=== PATIENT | female | born 1985 | race Caucasian/White ===

== ENCOUNTER 2020-02-26 11:33 | Emergency (ER) | payer MEDICAID ==
[~2020-02-26] VITALS: Ht 157.5 cm; Wt 90.9 kg
[~2020-02-26 11:33] MED LIST: TRIA15CR61 TOP
[2020-02-26 11:46] VITALS: BP 111/75
== END 2020-02-26 12:49 | disposition home or self-care (01) ==
LOC: ER 11:34
DX: F07.81 Postconcussional syndrome (principal)
CPT/HCPCS: 99282

== ENCOUNTER 2021-02-27 10:54 | Day surgery (SDC) | payer MEDICAID ==
[2021-02-24 11:22] LABS: BASOPHILS % (AUTO) 0.6 % (0-1); EOSINOPHILS # (AUTO) 0.1 X10'3 (0-0.9); LYMPHOCYTES # (AUTO) 1.4 X10'3 (1.1-4.8); LYMPHOCYTES % (AUTO) 25.5 % (21-51); MEAN CORPUSCULAR HEMOGLOBIN 30.1 PG (27.0-31.0); MEAN CORPUSCULAR VOLUME 88.3 FL (78-98); MEAN PLATELET VOLUME 7.8 FL (7.4-10.4); MONOCYTES # (AUTO) 0.4 X10'3 (0-0.9); NEUTROPHILS # (AUTO) 3.7 X10'3 (1.8-7.7); NEUTROPHILS % (AUTO) 64.9 % (42-75); PRE OP HEMATOCRIT 41.2 % (35.0-45.0); PRE OP PLATELET COUNT 285 X10'3 (140-440); RED BLOOD COUNT 4.67 X10'6 (4.20-5.60); RED CELL DISTRIBUTION WIDTH 14.1 % (11.5-14.5)
[2021-02-24 11:37] LABS: ALBUMIN 3.7 G/DL (3.4-5.0); ANION GAP 6 (8-16); BLOOD UREA NITROGEN 10 MG/DL (7-18); BUN/CREATININE RATIO 13.5 (6.6-38.0); CALCIUM 8.8 MG/DL (8.5-10.1); CHLORIDE 106 MMOL/L (99-107); CREATININE 0.74 MG/DL (0.40-0.90); GLUCOSE 83 MG/DL (70-104); POTASSIUM 3.7 MMOL/L (3.5-5.1); SODIUM 141 MMOL/L (135-145); TOTAL CARBON DIOXIDE 29.4 MMOL/L (24-32); eGFR 90 ML/MIN
[2021-02-24 11:39] LABS: HCG SERUM QL NEGATIVE
[2021-02-27] VITALS (9 sets, daily range): BP systolic 107–131; BP diastolic 62–75
[~2021-02-27] VITALS: Ht 154.9 cm; Wt 61.7 kg
[~2021-02-27 10:54] MED LIST changes: +NO HOME MEDS; -TRIA15CR61 TOP; +famotidine 20mg tablet PO ONE; +ringers solution, lacted 1,000 ML IV SCH
[2021-02-27] MEDS ORDERED: clindamycin-Cleocin 900mg/D5W 50 ML IV ONE (11:39)
[2021-02-27] MEDS ORDERED: vancomycin/NS 1 GM ADD-VANTAGE 250 ML X 1 DOSE IV ONE (11:45)
[2021-02-27] MEDS ORDERED: BUPIVAcaine/PF 2.5 mg/ml (0.25%) 30ml vial ONE (12:23)
[2021-02-27] MEDS ORDERED: triamcinolone acetonide 40mg/ml inj ONE (12:24)
[2021-02-27] MEDS ORDERED: sevoflurane 250ml liquid IH ONE (13:02)
[2021-02-27] MEDS ORDERED: midazolam 1 mg/ML 2ml injection ONE (13:06)
[2021-02-27] MEDS ORDERED: fentaNYL/PF 50MCG/1 ML 2ML syringe ONE (13:06)
[2021-02-27] MEDS ORDERED: propofol inj 20 ML IV ONE ×2 (13:17→13:44)
[2021-02-27] MEDS ORDERED: LIDOcaine 2% (20mg/ml) 5ml vial ONE (13:18)
[2021-02-27] MEDS ORDERED: meperidine/PF 25mg/ml syringe ONE (13:19)
[2021-02-27] MEDS ORDERED: ondansetron/PF 4mg/2ml inj ONE (13:29)
[2021-02-27] MEDS ORDERED: acetaminophen 1,000mg/100ml IV 100 ML IV ONE (13:30)
--- NOTE | 2021-02-27 13:58 | NUR ---
Received from OR via [facility] , accompanied by Anesthesiologist SAPPHIRE and report given by Anesthesiolgist. PATIENT WITH 20G PIV IN LEFT UE RUNNING LR AT 100. DENIES PAIN AT THIS TIME. 10L MASK ON WITH 98% SATURATIONS. RIGHT KNEE WITH BIAS WRAP THAT IS CDI. + DP TO RIGHT FOOT. Addendum: 02/27/21 at 1404 by Nino Cerda RN, RN Amended: Links added.
[2021-02-27] MEDS ORDERED: meperidine/PF 25mg/ml syringe IV PRN (14:10)
[2021-02-27] MEDS ORDERED: morphine 2 MG/ML inj. syringe IV PRN (14:10)
[2021-02-27] MEDS ORDERED: morphine 4 MG/ML inj SYRINge IV PRN (14:10)
[2021-02-27] MEDS: meperidine/PF 25mg/ml syringe IV PRN ×2 (14:17→14:37)
--- NOTE | 2021-02-27 15:08 | NUR ---
ALL DISCHARGE CRITERIA HAS BEEN MET. VSS, PAIN AT A TOLERABLE LEVEL, VOIDING AND ABLE TO SAFELY AMBULATE AND TRANSFER SELF. IV TAKEN OUT WITHOUT ANY COMPLICATIONS. ALL DISCHARGE INSTRUCTIONS COVERED WITH PATIENT AND ALL QUESTIONS ANSWERED. PATIENT TAKEN OUT VIA WHEELCHAIR TO PERSONAL VEHICLE WHERE FAMILY/FRIEND DROVE PATIENT HOME. SPOUSE PRESENT TO DRESS PATIENT AND HEAR DC INSTRUCTIONS WELL. VSS, PAIN CONTROLLED Addendum: 02/27/21 at 1526 by Nino Cerda RN, RN Amended: Links added.
== END 2021-02-27 15:08 | disposition home or self-care (01) ==
LOC: PAS 10:54
PROVIDERS: ATTEND Orthopaedic Surgery
DX: S83.231A Complex tear of medial meniscus, current injury, right knee, initial encounter (principal); S83.281A Other tear of lateral meniscus, current injury, right knee, initial encounter; M94.261 Chondromalacia, right knee; M17.0 Bilateral primary osteoarthritis of knee; F31.9 Bipolar disorder, unspecified; E66.8 Other obesity; Z68.26 Body mass index [BMI] 26.0-26.9, adult; Z20.822 Contact with and (suspected) exposure to COVID-19; Z79.899 Other long term (current) drug therapy; Z88.1 Allergy status to other antibiotic agents; Z90.49 Acquired absence of other specified parts of digestive tract; Z98.890 Other specified postprocedural states; Z98.84 Bariatric surgery status; Z87.891 Personal history of nicotine dependence
CPT/HCPCS: 29873; 29879; 29880; 36415; 80048; 82948; 84703; 85025; 87635; C9803; J0131; J2175; J2250; J2405; J2704; J3010; J3301; J3370; J3490; J7120; Z7506; Z7512; A4215; A4618; A6250; A6449; A7000

== ENCOUNTER 2021-06-13 18:58 | Emergency (ER) | payer MEDICAID ==
[~2021-06-13] VITALS: Ht 154.9 cm; Wt 58.2 kg
[~2021-06-13 18:58] MED LIST changes: -famotidine 20mg tablet PO ONE; -ringers solution, lacted 1,000 ML IV SCH
[2021-06-13 19:36] VITALS: BP 147/99
[2021-06-13 20:38] LABS: BASOPHILS # (AUTO) 0.1 X10'3 (0-0.2); BASOPHILS % (AUTO) 0.9 % (0-1); EOSINOPHILS # (AUTO) 0.1 X10'3 (0-0.9); EOSINOPHILS % (AUTO) 1.3 % (0-6); HEMATOCRIT 43.3 % (35.0-45.0); HEMOGLOBIN 14.4 g/dl (12.0-16.0); LYMPHOCYTES # (AUTO) 1.9 X10'3 (1.1-4.8); LYMPHOCYTES % (AUTO) 30.3 % (21-51); MEAN CORPUSCULAR HEMOGLOBIN 29.2 PG (27.0-31.0); MEAN CORPUSCULAR HGB CONC 33.4 g/dL (33.0-36.5); MEAN CORPUSCULAR VOLUME 87.4 FL (78-98); MEAN PLATELET VOLUME 8.3 FL (7.4-10.4); MONOCYTES # (AUTO) 0.4 X10'3 (0-0.9); MONOCYTES % (AUTO) 7.2 % (2-12); NEUTROPHILS # (AUTO) 3.7 X10'3 (1.8-7.7); NEUTROPHILS % (AUTO) 60.3 % (42-75); PLATELET COUNT 280 X10'3 (140-440); RED BLOOD COUNT 4.95 X10'6 (4.20-5.60); RED CELL DISTRIBUTION WIDTH 14.3 % (11.5-14.5); WHITE BLOOD COUNT 6.2 X10'3 (4.5-11.0)
[2021-06-13 20:50] LABS: ALANINE AMINOTRANSFERASE 13 U/L (12-78); ALBUMIN/GLOBULIN RATIO 1.1 (1.1-1.5); ALKALINE PHOSPHATASE 46 IU/L (46-116); ANION GAP 9 (8-16); ASPARTATE AMINO TRANSFERASE 16 U/L (10-37); BILIRUBIN,TOTAL 0.3 MG/DL (0.1-1.0); BLOOD UREA NITROGEN 9 MG/DL (7-18); BUN/CREATININE RATIO 11.1 (6.6-38.0); CALCIUM 8.4 MG/DL (8.5-10.1); CHLORIDE 104 MMOL/L (99-107); CREATININE 0.81 MG/DL (0.40-0.90); GLUCOSE 82 MG/DL (70-104); POTASSIUM 3.7 MMOL/L (3.5-5.1); SODIUM 140 MMOL/L (135-145); TOTAL CARBON DIOXIDE 26.8 MMOL/L (24-32); TOTAL PROTEIN 7.5 G/DL (6.4-8.2); eGFR 80 ML/MIN
[2021-06-13] MEDS ORDERED: amox tr/potassium clavulanate 875/125mg TAB PO ONE (20:55)
[2021-06-13] MEDS ORDERED: AMOX-117 PO (21:05)
== END 2021-06-13 21:19 | disposition home or self-care (01) ==
LOC: ER 18:59
DX: S20.211A Contusion of right front wall of thorax, initial encounter (principal); J32.9 Chronic sinusitis, unspecified; Z88.1 Allergy status to other antibiotic agents; X58.XXXA Exposure to other specified factors, initial encounter; Y93.89 Activity, other specified; Y92.89 Other specified places as the place of occurrence of the external cause; Y99.8 Other external cause status
CPT/HCPCS: 36415; 71046; 80053; 83880; 85025; 87040; 99284

== ENCOUNTER 2022-02-04 15:21 | Emergency (ER) | payer MEDICAID | END 2022-02-04 17:53 | disposition left against medical advice (07) | LOC: ER 15:21 | DX: R10.9 Unspecified abdominal pain (principal); Z53.21 Procedure and treatment not carried out due to patient leaving prior to being seen by health care provider ==

== ENCOUNTER 2024-05-07 00:44 | Emergency (ER) | payer MEDICAID ==
[~2024-05-07] VITALS: Ht 154.9 cm; Wt 66.0 kg
[2024-05-07] MEDS ORDERED: ibuprofen tablet 400 MG TABLET PO ONE (03:25)
[2024-05-07] MEDS: amox tr/potassium clavulanate 875/125mg TAB PO ONE (03:29)
[2024-05-07] MEDS: ibuprofen 200mg tablet PO ONE (03:29)
[2024-05-07] MEDS ORDERED: AMOX-117 PO (04:37)
[2024-05-07 04:44] VITALS: BP 135/92; PULSE 64; RESP 16; TEMP 98.2; O2SAT 97
== END 2024-05-07 04:49 | disposition home or self-care (01) ==
LOC: ER 00:45
DX: S60.511A Abrasion of right hand, initial encounter (principal); Z88.1 Allergy status to other antibiotic agents; W55.03XA Scratched by cat, initial encounter; Y93.89 Activity, other specified; Y92.89 Other specified places as the place of occurrence of the external cause; Y99.8 Other external cause status
CPT/HCPCS: 29130; 73120; 99283

== ENCOUNTER 2025-01-22 09:16 | Outpatient (CLI) | payer MEDICAID ==
--- NOTE | 2025-01-22 13:09 | RADIOLOGY REPORT ---
PROCEDURE: MR MRI ORBITS FACE AND NECK Indication: CERVICALGIA COMPARISON: None TECHNIQUE: Multiplanar multisequence of the neck are obtained without contrast.. FINDINGS: T1 sagittal, T1 axial, T2 axial and coronal STIR images are obtained. No mastoid effusion. The parotid, dental ceramist assistant and parapharyngeal spaces are unremarkable. Mild mucosal thickening of the maxillary sinuses. Nasopharynx, oropharynx, hypopharynx patent. Epiglottis and aryepiglottic folds unremarkable. 5 mm right cervical jugulodigastric lymph node. Thyroid gland unremarkable. No significant posterior cervical triangle lymphadenopathy. IMPRESSION: No identifiable neck mass within limitations of noncontrast MRI. If there is concern for neck pain recommend obtaining dedicated MRI of the cervical spine. Mild maxillary sinus disease.
== END 2025-01-22 23:59 | disposition home or self-care (01) ==
LOC: MRI02 09:16
PROVIDERS: ATTEND Family Medicine
DX: R59.0 Localized enlarged lymph nodes (principal); M54.2 Cervicalgia
CPT/HCPCS: 70540